=== PATIENT | male | born 1935 ===

== ENCOUNTER 2019-06-29 11:30 | Inpatient (IN) | payer OTHER ==
[~2019-06-29] VITALS: Ht 177.8 cm; Wt 81.6 kg
[2019-06-29] MEDS ORDERED: HORIZANT300 MG PO (14:38)
[2019-06-29] MEDS ORDERED: ATORVASTATIN CA10 MG PO (14:39)
[2019-06-29] MEDS ORDERED: ZESTRIL2.5 MG PO (14:39)
[2019-06-29] MEDS ORDERED: CLONAZEPAM0.5 MG PO (14:39)
[2019-06-29] MEDS ORDERED: ZOLOFT25 MG PO (14:39)
[2019-06-29] MEDS ORDERED: ULTRAM50 MG PO (14:39)
[2019-07-04] MEDS ORDERED: PERCOCET 5-3251 EACH PO (08:57)
[2019-07-04] MEDS ORDERED: CLONAZEPAM1 MG PO (08:57)
[2019-07-04] MEDS ORDERED: COLACE100 MG PO (08:58)
== END 2019-07-05 14:27 | disposition home or self-care (01) | DRG 472 ==
LOC: O/R 11:30 → SURG 07-04 05:12 → O/R 07-04 07:00 → SURG 07-04 10:43 → O/R 07-04 11:30 → SURG 07-05 14:27
PROVIDERS: ADMIT Orthopaedic Surgery Orthopaedic Surgery of the Spine
PROC: 0RT30ZZ Resection of Cervical Vertebral Disc, Open Approach (ICD-10-PCS; 2019-07-04)
PROC: 0RG10A0 Fusion of Cervical Vertebral Joint with Interbody Fusion Device, Anterior Approach, Anterior Column, Open Approach (ICD-10-PCS; principal; 2019-07-04 07:00)
DX: M50.022 Cervical disc disorder at C5-C6 level with myelopathy (principal); M47.12 Other spondylosis with myelopathy, cervical region; I10 Essential (primary) hypertension